=== PATIENT | female | born 1955 | race African-American/Black ===

== ENCOUNTER 2019-06-18 08:22 | Emergency (ER) | payer MEDICAID, OTHER ==
[~2019-06-18] VITALS: Ht 165.1 cm; Wt 95.0 kg
[2019-06-18 09:05] VITALS: BP 152/81
[2019-06-18] MEDS ORDERED: ASPIRIN 81MG TABLET PO ONE (09:30)
[2019-06-18 09:34] LABS: CHLORIDE 112 mEq/L (98-107)
[2019-06-18 10:22] LABS: BASOPHILS % 0.5 % (0.0-2.0); EOSINOPHILS % 1.9 % (0.0-5.0); HEMATOCRIT. 45.3 % (36.0-48.0); HEMOGLOBIN. 15.3 g/dL (12.0-16.0); LYMPHOCYTES % 19.1 % (20.0-50.0); MEAN CORPUSCULAR HEMOGLOBIN 29.6 pg (28.0-32.0); MEAN CORPUSCULAR VOLUME 87.5 fL (81.0-99.0); NEUTROPHILS % 73.5 % (40.0-76.0); PLATELET 243 x1000/uL (130-400); RED BLOOD CELL COUNT 5.18 mill/uL (4.2-5.4); RED CELL DISTRIBUTION WIDTH 13.6 % (11.6-14.6)
[2019-06-18] MEDS ORDERED: IOHEXOL-350 100 ML BOTTLE ONE (10:26)
[2019-06-18 10:48] LABS: CLARITY URINE CLEAR (CLEAR); COLOR URINE YELLOW (YELLOW); KETONES URINE NEGATIVE (NEGATIVE); LEUKOCYTE ESTERASE URINE 2+ (NEGATIVE); NITRITE URINE POSITIVE (NEGATIVE); OCCULT BLOOD URINE NEGATIVE (NEGATIVE); PH URINE 6.5 (4.5-8.0); PROTEIN URINE NEGATIVE (NEGATIVE); SPECIFIC GRAVITY URINE 1.008 (1.005-1.030); UROBILINOGEN URINE 0.2 E.U./dL (0.2-1.0)
[2019-06-18] MEDS ORDERED: MAGNESIUM/ALUMINUM HYDROXIDE/SIMETHICONE 30ML UDC PO PRN (11:00)
[2019-06-18] MEDS ORDERED: HYDROCODONE/ACETAMINOPHEN 5/325MG TABLET PO PRN (11:00)
[2019-06-18] MEDS ORDERED: DOCUSATE SODIUM 100MG CAPSULE PO PRN (11:00)
[2019-06-18] MEDS ORDERED: GUAIFENESIN 200MG/10ML SUGAR FREE UDC PO PRN (11:00)
[2019-06-18] MEDS ORDERED: ACETAMINOPHEN 325MG TABLET PO PRN (11:00)
[2019-06-18] MEDS ORDERED: DIPHENHYDRAMINE 50MG/ML VIAL IV PRN (11:00)
[2019-06-18] MEDS ORDERED: CLONIDINE 0.1MG TABLET PO PRN (11:00)
[2019-06-18] MEDS ORDERED: ENOXAPARIN 40MG/0.4ML SYR SUBCUT SCH (11:00)
[2019-06-18] MEDS ORDERED: NA PHOS,M-B/NA PHOS,DI-BA ENEMA 118ML PR PRN (11:00)
[2019-06-18] MEDS ORDERED: ONDANSETRON HCL 4MG/2ML INJ IV PRN (11:00)
[2019-06-18] MEDS ORDERED: LORAZEPAM 2MG/ML CPJ IV PRN (11:00)
[2019-06-18] MEDS ORDERED: HYDROMORPHONE HCL/PF 2MG/ML CPJ IV PRN (11:00)
[2019-06-19] MEDS ORDERED: ASPIRIN 81MG EC TABLET PO SCH (09:00)
== END 2019-06-18 11:54 | disposition left against medical advice (07) ==
LOC: ER 08:22 → EDBEDREQ 10:01 → EDBEDREQTM 10:01 → CANRESERV 10:12 → ENRESERV 10:12 → CANBEDREQ 11:36 → ER 11:54
DX: R07.89 Other chest pain (principal); R55 Syncope and collapse; N39.0 Urinary tract infection, site not specified; I10 Essential (primary) hypertension
CPT/HCPCS: 36415; 70450; 71045; 71275; 80053; 81003; 83880; 84484; 85025; 87077; 87086; 87186; 93005; 99284; Q9967; Z7610

== ENCOUNTER 2024-07-18 02:50 | Inpatient (IN) | payer MEDICARE, MEDICAID ==
[~2024-07-18] VITALS: Ht 167.6 cm; Wt 88.5 kg
[~2024-07-18 02:50] MED LIST: ASPI-1497 PO
[2024-07-18 04:20] LABS: BASOPHILS % 0.3 % (0.0-2.0); EOSINOPHILS % 0.5 % (0.0-5.0); HEMOGLOBIN. 13.7 g/dL (12.0-16.0); LYMPHOCYTES % 9.9 % (20.0-50.0); MEAN CORPUSCULAR HEMOGLOBIN 28.4 pg (28.0-32.0); MEAN CORPUSCULAR HGB CONC 32.7 g/dL (31.0-37.0); MEAN PLATELET VOLUME 7.9 fl (7.4-10.4); MONOCYTES % 4.9 % (2.0-8.0); NEUTROPHILS % 84.4 % (40.0-76.0); PLATELET 182 x1000/uL (130-400); RED BLOOD CELL COUNT 4.83 mill/uL (4.2-5.4); RED CELL DISTRIBUTION WIDTH 13.6 % (11.6-14.6); WHITE BLOOD COUNT 11.5 x1000/uL (4.5-11.0)
[2024-07-18 04:25] LABS: CHLORIDE 111 mEq/L (98-107); POTASSIUM 3.9 mEq/L (3.5-5.1); SODIUM 142 mEq/L (136-145)
[2024-07-18 04:26] LABS: CARBON DIOXIDE 25 mEq/L (21-32)
[2024-07-18 04:27] LABS: CALCIUM 9.4 mg/dL (8.7-10.4)
[2024-07-18 04:31] LABS: CREATININE 0.8 mg/dL (0.6-1.0); GLUCOSE 157 mg/dL (70-105); UREA NITROGEN BLOOD 14 mg/dL (9-23)
[2024-07-18] MEDS: ASPIRIN 81MG TABLET PO ONE (04:32)
[2024-07-18 04:35] LABS: TROPONIN I HIGH SENSITIVITY < 4 ng/L (3.0-34)
[2024-07-18] MEDS ORDERED: DOCUSATE SODIUM 100MG CAPSULE PO PRN (06:15)
[2024-07-18] MEDS ORDERED: ONDANSETRON HCL 4MG/2ML INJ IV PRN (06:15)
[2024-07-18] MEDS ORDERED: IPRATROPIUM/ALBUTEROL 0.5-3(2.5)MG/3ML NEB HHN PRN (06:15)
[2024-07-18] MEDS ORDERED: GUAIFENESIN 200MG/10ML SUGAR FREE UDC PO PRN (06:15)
[2024-07-18] MEDS ORDERED: FAMOTIDINE 20MG/2ML VIAL IV SCH (06:15)
[2024-07-18] MEDS ORDERED: ACETAMINOPHEN 325MG TABLET PO PRN (06:15)
[2024-07-18 07:00] LABS: TROPONIN I HIGH SENSITIVITY < 4 ng/L (3.0-34)
[2024-07-18 08:31] LABS: T4 FREE 1.08 ng/dL (0.89-1.76); THYROID STIMULATING HORMONE 0.48 uIU/mL (0.55-4.78)
[2024-07-18] MEDS: FAMOTIDINE 20MG/2ML VIAL IV SCH (08:40)
[2024-07-18] MEDS: ASPIRIN 81MG EC TABLET PO SCH (08:41)
[2024-07-18] MEDS: METOPROLOL TARTRATE 25MG TABLET PO SCH (08:41)
[2024-07-18] MEDS: ENOXAPARIN 80MG/0.8ML SYR SUBCUT SCH (08:41)
[2024-07-18] MEDS: ACETAMINOPHEN 325MG TABLET PO PRN (08:50)
[2024-07-18 12:34] LABS: D-DIMER 2.76 mg/L FEU (<0.50); PROTHROMBIN TIME 11.2 sec (9.6-11.0)
[2024-07-18 14:05] LABS: CLARITY URINE CLOUDY (CLEAR); COLOR URINE DARK YELLOW (YELLOW); GLUCOSE URINE NEGATIVE (NEGATIVE); KETONES URINE NEGATIVE (NEGATIVE); LEUKOCYTE ESTERASE URINE 2+ (NEGATIVE); NITRITE URINE NEGATIVE (NEGATIVE); OCCULT BLOOD URINE NEGATIVE (NEGATIVE); PH URINE 5.5 (4.5-8.0); PROTEIN URINE NEGATIVE (NEGATIVE); SPECIFIC GRAVITY URINE 1.021 (1.005-1.030)
[2024-07-18 14:19] LABS: *AMPHETAMINES SCREEN URINE NEGATIVE (NEGATIVE); *BARBITURATES SCREEN URINE NEGATIVE (NEGATIVE); *BENZODIAZEPINES SCREEN URINE NEGATIVE (NEGATIVE); *COCAINE SCREEN URINE NEGATIVE (NEGATIVE); CANNABINOID URINE SCREEN NEGATIVE (NEGATIVE); ECSTASY MDMA SCREEN URINE NEGATIVE (NEGATIVE); METHADONE URINE SCREEN NEGATIVE (NEGATIVE); OPIATES URINE SCREEN NEGATIVE (NEGATIVE); PHENCYCLIDINE URINE SCREEN NEGATIVE (NEGATIVE)
[2024-07-18 14:25] LABS: BACTERIA URINE 4+; SQUAMOUS EPITHELIAL CELL URINE 2+ /lpf (RARE/1+)
[2024-07-18 14:26] LABS: RBC URINE 0-2 /hpf (0-2)
[2024-07-18] MEDS ORDERED: CEFTRIAXONE 1GM/50ML 50 ML IV SCH (18:00)
[2024-07-18 18:04] VITALS: BP 135/64; PULSE 72; RESP 20; TEMP 36.33624; O2SAT 96
[2024-07-18] MEDS ORDERED: FAMO-135 MT (18:10)
[2024-07-18] MEDS ORDERED: CETI-89 MT (18:10)
[2024-07-18] MEDS ORDERED: METO-539 MT (18:10)
[2024-07-18] MEDS ORDERED: ASPI-1406 MT (18:10)
[2024-07-18] MEDS ORDERED: ATOR80TA PO (18:10)
[2024-07-18] MEDS ORDERED: CHOL400D7 PO (18:10)
[2024-07-18 20:00] VITALS: BP 110/35; PULSE 76; RESP 18; TEMP 36.6696; O2SAT 95
[2024-07-18 21:20] LABS: TROPONIN I HIGH SENSITIVITY 4 ng/L (3.0-34)
[2024-07-18] MEDS: ATORVASTATIN CALCIUM 40MG TABLET PO SCH (21:34)
[2024-07-18 23:00] VITALS: BP 135/64; PULSE 72; RESP 18; TEMP 36.3624
[2024-07-18] MEDS: CEFTRIAXONE 1GM/50ML 50 ML IV SCH (23:16)
[2024-07-19] VITALS: BP 124/43; PULSE 65; RESP 16; TEMP 37.05852; O2SAT 96
[2024-07-19 04:00] VITALS: BP 128/44; PULSE 72; RESP 16; TEMP 37.11408; O2SAT 95
[2024-07-19 06:09] LABS: BASOPHILS % 0.2 % (0.0-2.0); EOSINOPHILS % 1.1 % (0.0-5.0); HEMATOCRIT. 39.2 % (36.0-48.0); HEMOGLOBIN. 13.3 g/dL (12.0-16.0); LYMPHOCYTES % 14.7 % (20.0-50.0); MEAN CORPUSCULAR HEMOGLOBIN 29.8 pg (28.0-32.0); MEAN CORPUSCULAR HGB CONC 33.9 g/dL (31.0-37.0); MEAN CORPUSCULAR VOLUME 87.8 fL (81.0-99.0); MEAN PLATELET VOLUME 8.5 fl (7.4-10.4); MONOCYTES % 7.3 % (2.0-8.0); NEUTROPHILS % 76.7 % (40.0-76.0); PLATELET 164 x1000/uL (130-400); RED BLOOD CELL COUNT 4.46 mill/uL (4.2-5.4); RED CELL DISTRIBUTION WIDTH 13.8 % (11.6-14.6); WHITE BLOOD COUNT 8.4 x1000/uL (4.5-11.0)
[2024-07-19 06:10] LABS: CHLORIDE 110 mEq/L (98-107); POTASSIUM 3.3 mEq/L (3.5-5.1); SODIUM 142 mEq/L (136-145)
[2024-07-19 06:11] LABS: CALCIUM 9.3 mg/dL (8.7-10.4); CARBON DIOXIDE 26 mEq/L (21-32)
[2024-07-19 06:15] LABS: CREATINE KINASE MB FRACTION < 0.5 ng/mL (0.5-3.6)
[2024-07-19 06:16] LABS: CREATININE 0.7 mg/dL (0.6-1.0); GLUCOSE 117 mg/dL (70-105); TROPONIN I HIGH SENSITIVITY 5 ng/L (3.0-34); UREA NITROGEN BLOOD 12 mg/dL (9-23)
[2024-07-19 06:18] LABS: ALANINE AMINOTRANSFERASE 218 IU/L (10-49); ASPARTATE AMINOTRANSFERASE 190 IU/L (<34); BILIRUBIN DIRECT 2.6 mg/dL (<=3.0); BILIRUBIN TOTAL 4.5 mg/dL (0.1-1.0); PHOSPHORUS 2.6 mg/dL (2.5-4.9); PROTEIN TOTAL 6.6 g/dL (6.0-8.3)
[2024-07-19 08:31] VITALS: BP 111/46; PULSE 77; RESP 18; TEMP 36.61404; O2SAT 95
[2024-07-19] MEDS: POTASSIUM CHLORIDE 20MEQ TABLET SR PO NR (08:31)
[2024-07-19] MEDS: INFLUENZA VACCINE 05/PF 0.5 ML SYRINGE IM ONE (09:00)
[2024-07-19] MEDS: MAGNESIUM 2 G PREMIX 50 ML IV NR (10:07)
[2024-07-19] MEDS ORDERED: LEVO750T68 MT (11:33)
[2024-07-19 12:14] VITALS: BP 124/50; PULSE 62; RESP 20; TEMP 36.55848; O2SAT 98
[2024-07-19] MEDS ORDERED: APIX5TAB PO (12:56)
[2024-07-19 13:57] VITALS: BP 124/50; PULSE 62; TEMP 97.8; O2SAT 98
== END 2024-07-19 13:08 | disposition home or self-care (01) | DRG 311 ==
LOC: ER 02:50 → EDBEDREQTM 05:19 → EDBEDREQ 05:19 → 7WST 18:09
PROVIDERS: ADMIT Internal Medicine; ATTEND Internal Medicine
DX: I20.0 Unstable angina (principal); N39.0 Urinary tract infection, site not specified; E78.5 Hyperlipidemia, unspecified; E11.9 Type 2 diabetes mellitus without complications; E87.6 Hypokalemia; G89.29 Other chronic pain; E04.2 Nontoxic multinodular goiter; I11.0 Hypertensive heart disease with heart failure; I48.0 Paroxysmal atrial fibrillation; I50.9 Heart failure, unspecified; N20.0 Calculus of kidney; R09.02 Hypoxemia; Z86.718 Personal history of other venous thrombosis and embolism
CPT/HCPCS: 36415; 71045; 76770; 80048; 80061; 80076; 80305; 81003; 82553; 83036; 83735; 83880; 84100; 84145; 84439; 84443; 84481; 84484; 85025; 85379; 87077; 87186; 93005; 93970; 99285; J0696; J1650; J3475; J3490